=== PATIENT | female | born 1985 | race Caucasian/White ===

== ENCOUNTER → 2020-07-28 | Day surgery (SDC) | payer OTHER ==
[~2020-07-28] MED LIST: IBUPROFEN800 M1 PO; PRENATAL FORMU1 EACH PO
[2020-07-28 09:57] LABS: HGB 13.9 g/dl (12.5-16.0); MCH 30.4 pg (25.0-31.0); MCHC 33.9 g/dL (32.0-36.0); MCV 89.7 fL (78.0-100.0); MPV 9.2 fL (6.0-9.5); RBC 4.57 M/uL (4.20-5.40); RDW 13.2 % (11.5-14.0); WBC 6.4 K/uL (4.0-10.5)
== END | disposition home or self-care (01) ==
LOC: FAS 08:00
PROVIDERS: Obstetrics & Gynecology
DX: O02.1 Missed abortion (principal); O99.210 Obesity complicating pregnancy, unspecified trimester; Z20.822 Contact with and (suspected) exposure to COVID-19; Z88.8 Allergy status to other drugs, medicaments and biological substances; Z75.9 Unspecified problem related to medical facilities and other health care
CPT/HCPCS: 36415; 86850; 86900; 86901; J2001; J2250; J2405; J2704; J3010; J7050; J7120

== ENCOUNTER 2021-05-08 03:56 | Inpatient (IN) | payer OTHER ==
[2021-05-08 04:34] LABS: HCT 34.9 % (37.0-47.0); HGB 11.9 g/dl (12.5-16.0); MCH 30.4 pg (25.0-31.0); MCHC 34.1 g/dL (32.0-36.0); MPV 10.3 fL (6.0-9.5); RBC 3.92 M/uL (4.20-5.40); RDW 13.8 % (11.5-14.0); WBC 10.1 K/uL (4.0-10.5)
[2021-05-09 06:48] LABS: HCT 28.4 % (37.0-47.0); HGB 9.6 g/dl (12.5-16.0); MCH 30.8 pg (25.0-31.0); MCHC 33.8 g/dL (32.0-36.0); RBC 3.12 M/uL (4.20-5.40); RDW 14.3 % (11.5-14.0); WBC 7.8 K/uL (4.0-10.5)
== END 2021-05-10 11:52 | disposition home or self-care (01) | DRG 806 ==
LOC: FOD 03:56 → FOB 03:56 → FOD 04:23 → FOB 04:24
PROVIDERS: ADMIT Obstetrics & Gynecology
PROC: 10E0XZZ Delivery of Products of Conception, External Approach (ICD-10-PCS; principal; 2021-05-08)
PROC: 0KQM0ZZ Repair Perineum Muscle, Open Approach (ICD-10-PCS; 2021-05-08)
DX: O36.63X0 Maternal care for excessive fetal growth, third trimester, not applicable or unspecified (principal); D62 Acute posthemorrhagic anemia; Z37.0 Single live birth; Z3A.39 39 weeks gestation of pregnancy; Z20.822 Contact with and (suspected) exposure to COVID-19; O99.214 Obesity complicating childbirth; O70.1 Second degree perineal laceration during delivery; O99.02 Anemia complicating childbirth; D50.9 Iron deficiency anemia, unspecified; Z82.49 Family history of ischemic heart disease and other diseases of the circulatory system
CPT/HCPCS: 36415; 86850; 86900; 86901; 90707; J2001; J2916; J7120; U0002